=== PATIENT | female | born 1965 | race Caucasian/White ===

== ENCOUNTER → 2024-11-18 | Outpatient (CLI) | payer OTHER, MEDICARE, SELFPAY ==
--- NOTE | 2024-11-18 09:30 | XR_ITS ---
Examination: Screening digital mammography, bilateral Computer aided detection 3-D breast Tomosynthesis, bilateral Date and time of exam: November 18, 2024 0928 hours Compared to mammograms dating to April 05, 2023 Indication: Screening Technique: Nonmagnified MLO, CC views of the breasts to been obtained, reconstructed from 3-D Tomosynthesis images. R2 computer aided detection program utilized for evaluation of suspicious masses and/or abnormal calcifications. 3-D Tomosynthesis images obtained. Findings: Breasts are heterogeneously dense, which may obscure small masses Breast biopsy marker upper outer left breast Bilateral probably benign calcifications Impression: BI-RADS Category 3: Probably benign findings One additional 6 month bilateral mammography follow-up is needed to document stability of bilateral microcalcifications Please see the left breast sonogram report April 12, 2023 indicating 6 month follow-up left breast sonography, which should be performed at this time, to document stability of 3:00 nodule
== END | disposition home or self-care (01) ==
PROVIDERS: PCP Registered Nurse Community Health; Referring Provider Registered Nurse Community Health; Visit Provider Registered Nurse Community Health
DX: Z12.31 Encounter for screening mammogram for malignant neoplasm of breast (principal); R92.333 Mammographic heterogeneous density, bilateral breasts; R92.0 Mammographic microcalcification found on diagnostic imaging of breast; N63.25 Unspecified lump in the left breast, overlapping quadrants
CPT/HCPCS: 77063; 77067

== ENCOUNTER → 2024-12-22 | Outpatient (CLI) | payer OTHER, MEDICARE, SELFPAY ==
--- NOTE | 2024-12-22 10:14 | XR_ITS ---
Examination: Breast ultrasound, unilateral, left complete Date and time of exam: December 22, 2024 1022 hours INDICATIONS: Family history breast cancer, left breast sonogram April 12, 2023 3:00 nodule 8 x 8 mm Technique: Real-time hardy scale ultrasonographic imaging performed left breast including all 4 quadrants as well as nipple retroareolar and axillary region. Findings: 3:00 nodule circumscribed 9 x 8 mm IMPRESSION: BI-RADS Category 2: Benign findings
== END | disposition home or self-care (01) ==
LOC: CDIM 09:59
PROVIDERS: PCP Registered Nurse Community Health; Referring Provider Registered Nurse Community Health; Visit Provider Registered Nurse Community Health
DX: N63.25 Unspecified lump in the left breast, overlapping quadrants (principal); R92.322 Mammographic fibroglandular density, left breast
CPT/HCPCS: 76641

== ENCOUNTER → 2025-01-29 | Outpatient (CLI) | payer OTHER, MEDICARE, SELFPAY ==
[2025-01-29 08:24] LABS: Misc Send Out* See Sep Rpt
[2025-01-29 09:43] LABS: Cholesterol 172 mg/dL (132-200); HDL Cholesterol 43 mg/dL (40-60); LDL Cholesterol,Calculated 105 mg/dL (0-130); Triglycerides 122 mg/dL (30-150)
== END | disposition home or self-care (01) ==
PROVIDERS: PCP Registered Nurse Community Health; Referring Provider Registered Nurse Community Health; Visit Provider Registered Nurse Community Health
DX: E11.65 Type 2 diabetes mellitus with hyperglycemia (principal); E78.2 Mixed hyperlipidemia
CPT/HCPCS: 36415; 80061

== ENCOUNTER → 2025-03-31 | Outpatient (CLI) | payer OTHER, MEDICARE, SELFPAY ==
--- NOTE | 2025-03-31 10:43 | XR_ITS ---
EXAMINATION: Cervical spine, 5 views Technique: Cervical spine AP, AP odontoid, lateral, bilateral obliques, 5 views Exam date and time: March 31, 2025 1109 hours INDICATIONS: Neck pain beginning 10 days ago. FINDINGS: Prominent osteopenia. Satisfactory alignment cervical vertebral bodies. No cervical fracture. Intact odontoid. Mild to moderate disc narrowing C6-C7 with mild bilateral neural foraminal stenosis IMPRESSION: Mild to moderate degenerative disc disease C6-C7 with mild bilateral neural foraminal stenosis at this level
== END | disposition home or self-care (01) ==
LOC: CDIM 10:16
PROVIDERS: PCP Registered Nurse Community Health; Referring Provider Emergency Medicine; Visit Provider Emergency Medicine
DX: M50.323 Other cervical disc degeneration at C6-C7 level (principal); M48.02 Spinal stenosis, cervical region
CPT/HCPCS: 72050

== ENCOUNTER → 2025-04-12 | Outpatient (CLI) | payer OTHER, MEDICARE, SELFPAY ==
[2025-04-12 16:47] LABS: Alanine Aminotransferase 41 U/L (10-49); Albumin, Serum 4.5 gm/dL (3.5-5.0); Albumin/Globulin Ratio 2.0 (1.2-2.2); Alkaline Phosphatase 76 U/L (46-116); Anion Gap 10 (7-16); Aspartate Amino Transferase 45 U/L (0-34); BUN/Creatinine Ratio 10 Ratio (12-20); Bilirubin,Total 0.3 mg/dL (0.3-1.2); Blood Urea Nitrogen 8 mg/dL (9-23); Calcium 10.4 mg/dL (8.3-10.6); Calcium (Corrected) 10.4 mg/dL (8.5-10.1); Carbon Dioxide 22.8 mMol/L (20.0-31.0); Chloride 107 mMol/L (98-107); Creatinine (Component) 0.8 mg/dL (0.6-1.3); Free T4 (Free Thyroxine) 1.11 ng/dL (0.89-1.76); Globulin 2.3 gm/dL (2.3-3.5); Glucose 73 mg/dL (74-106); Osmolality,Calculated 276 (275-295); Potassium 4.2 mMol/L (3.4-5.1); Sodium 140 mMol/L (136-145); Thyroid Stimulating Hormone 3.52 uIU/mL (0.55-4.78); Total Protein 6.8 gm/dL (5.7-8.2); eGFR > 60 See Note
[2025-04-12 16:48] LABS: Vitamin B12 465 pg/mL (211-911)
[2025-04-12 16:49] LABS: Lithium 0.60 mEq/L (1.00-1.20)
== END | disposition home or self-care (01) ==
PROVIDERS: PCP Registered Nurse Community Health; Referring Provider Psychiatry & Neurology Psychiatry; Visit Provider Psychiatry & Neurology Psychiatry
DX: F31.5 Bipolar disorder, current episode depressed, severe, with psychotic features (principal); F39 Unspecified mood [affective] disorder
CPT/HCPCS: 36415; 80053; 80178; 82607; 84439; 84443

== ENCOUNTER → 2025-05-19 | Outpatient (CLI) | payer OTHER, MEDICARE, SELFPAY ==
--- NOTE | 2025-05-19 08:30 | XR_ITS ---
Examination: Breast ultrasound, unilateral, left complete Date and time of exam: May 19, 2025, 0846 hours INDICATIONS: Family history breast cancer, 9 x 8 mm nodule 3:00 position left breast on ultrasound December 22, 2024 Technique: Real-time hardy scale ultrasonographic imaging performed left breast including all 4 quadrants as well as nipple retroareolar and axillary region. Findings: 12:00 cyst 5 x 5 mm 3:00 nodule circumscribed 8 x 7 mm 3 cm axillary lymph node IMPRESSION: BI-RADS Category 2: Benign findings
--- NOTE | 2025-05-19 09:00 | XR_ITS ---
Examination: Diagnostic digital mammography, bilateral Computer aided detection 3-D breast Tomosynthesis, bilateral Date and time of exam: May 19, 2025, 0908 hours INDICATIONS: Mammogram November 18, 2024, mammogram May 28, 2023, mammogram April 12, 2023 microcalcifications upper outer left breast, microcalcifications outer right breast Technique: Nonmagnified MLO, CC views of the breasts to been obtained, reconstructed from 3-D Tomosynthesis images. R2 computer aided detection program utilized for evaluation of suspicious masses and/or abnormal calcifications. 3-D Tomosynthesis images obtained. Findings: Scattered areas of fibroglandular density. Breast biopsy markers outer left breast Grouped microcalcifications upper outer right breast noted mid depth Impression: BI-RADS Category 4: Suspicious for malignancy Suspicious microcalcifications are confirmed upper outer right breast on the magnification spot compression views Biopsy is needed to exclude breast carcinoma, these calcifications are amenable to stereotactic breast biopsy for diagnosis.
== END | disposition home or self-care (01) ==
LOC: CDIM 08:30
PROVIDERS: PCP Registered Nurse Community Health; Referring Provider Registered Nurse Community Health; Visit Provider Registered Nurse Community Health
DX: R92.342 Mammographic extreme density, left breast (principal); R92.0 Mammographic microcalcification found on diagnostic imaging of breast; Z80.3 Family history of malignant neoplasm of breast
CPT/HCPCS: 76641; 77062; 77066; G0279

== ENCOUNTER → 2025-06-25 | Outpatient (CLI) | payer BC, MEDICARE, SELFPAY ==
--- NOTE | 2025-06-25 09:22 | XR_ITS ---
Examination: Abdomen sonogram, complete Date and time of exam: 06/25/2025 at 9:30 a.m. INDICATION: Left flank pain for 1 week COMPARISON: Abdominal ultrasound 03/04/2023, CT abdomen pelvis 10/09/2022 Technique: Multiple real-time grayscale transabdominal sonographic images of the abdomen have been obtained. Findings: The visualized portions of the pancreas appear normal. The liver is mildly enlarged, measuring 18.9 cm in length. The liver parenchyma demonstrates increased echogenicity and coarse echotexture, which could be related to hepatic steatosis, although other diffuse liver disease such as chronic hepatitis, early cirrhosis and/or other process can have such an appearance as well. Color Doppler demonstrates patency of the main portal vein with normal hepatopetal flow. Color Doppler also shows flow in the hepatic veins and the visualized IVC. Cholecystectomy is reidentified. No concerning bile duct dilatation. The common bile duct is measured at 8 mm in caliber, which is within normal limits for postcholecystectomy state and patient age and stable compared to prior CT. No evidence for common bile duct stones. The spleen is normal in size, measured at 10 cm in length, and demonstrates normal echogenicity with no focal lesion appreciated. The kidneys are normal in size and echogenicity bilaterally with right renal length of 11.0 cm and left renal length of 11.2 cm. Both kidneys demonstrate normal echotexture. Dominant interpolar to lower polar cortical scarring is present at the right kidney, with much milder cortical scarring of the lower half of the left kidney. No hydronephrosis, dominant calculus or renal mass evident. No abnormal perinephric fluid collections. The visualized portions of the abdominal aorta and inferior vena cava are normal in appearance with no abdominal aortic aneurysm appreciated. No mass, ascites or other significant finding is identified. IMPRESSION: Diffusely increased hepatic echotexture is nonspecific but most likely patient representative of hepatic steatosis. Other diffuse liver disease processes such as chronic hepatitis and early fibrosis may have a similar appearance as well. Mild hepatomegaly. Remote cholecystectomy without concerning bile duct dilatation. Renal cortical scarring, greater at the right kidney. No calculi or hydronephrosis on either side.
--- NOTE | 2025-06-25 09:25 | XR_ITS ---
Examination: Abdomen AP single view Technique: AP portable supine abdomen, single view (2 views total) Exam date and time: 06/25/2025 at 9:53 a.m. INDICATION: Left-sided abdominal pain for 1 week COMPARISON: Abdominal radiographs 04/02/2020, CT abdomen pelvis 10/09/2022 FINDINGS: The urinary bladder is moderately filled. There is no adjacent prominent ovoid density along the left superolateral margin of the bladder dome that is indeterminate, potentially an ovarian cyst or other mass. Bilateral pelvic phleboliths are present. Otherwise, no evidence for urinary tract calculi. No abnormal bowel dilatation, displacement, or free air detected. Surgical clips in the right upper quadrant are compatible with cholecystectomy. No acute osseous abnormalities. IMPRESSION: Indeterminant ovoid density in the left hemipelvis, either ovarian cyst or other mass. A pelvic ultrasound is recommended for further evaluation. Otherwise, no radiographic evidence for acute abdomen.
== END | disposition home or self-care (01) ==
PROVIDERS: PCP Registered Nurse Community Health; Referring Provider Registered Nurse Community Health; Visit Provider Registered Nurse Community Health
DX: K76.9 Liver disease, unspecified (principal); N28.89 Other specified disorders of kidney and ureter; R16.0 Hepatomegaly, not elsewhere classified; R19.00 Intra-abdominal and pelvic swelling, mass and lump, unspecified site
CPT/HCPCS: 74018; 76700